=== PATIENT | male | born 1945 | race Caucasian/White ===

== ENCOUNTER 2021-11-17 09:56 | Outpatient (REF) | payer OTHER, SELFPAY ==
--- NOTE | ~2021-11-17 | CT_ITS ---
EXAMINATION: CT ANGIOGRAPHY LEGS WITH RUNOFF CLINICAL INFORMATION: Peripheral vascular disease. COMPARISON: None TECHNIQUE: Following rapid IV administration of 100 mL of Omnipaque 350, CT angiogram of abdominal aorta and both lower extremities was performed. 3-D postprocessing was performed on a separate workstation and is available for interpretation. This CT examination was performed using dose optimization techniques as appropriate, variously including the following: *Automated exposure control *Adjustment of mA and/or kV according to patient size (this includes techniques or standardized protocols for targeted exams where dose is matched to indication/reason for exam; i.e. extremities or head) *Use of iterative reconstruction technique DLP: 501 mGy-cm FINDINGS: CTA ABDOMEN: There is mild atherosclerotic soft plaque seen in the proximal, mid and the distal segments. There is good opacification of proximal mid and distal segments with no aneurysm or dissection visualized. Origin of celiac, SMA arteries is normal. There is minimal calcified plaque at the origin of SMA. The DEANNE is small caliber with its origin patent but barely visible. There are 2 right renal arteries with a smaller superior and a larger inferior artery. There is mild narrowing of the larger inferior artery from soft and hard atherosclerotic plaque with post stenotic mild dilatation. The superior renal artery is patent. A solitary left renal artery is noted and is widely patent in spite of mixed plaque at the origin. There are occluded and thrombosed and small caliber chitina left common iliac artery. There is left aorto-femoral grafts. ABDOMEN NON-CTA: The lung bases are clear. Heart size is normal. Liver, Ducts and Gallbladder: The liver is diffusely attenuated with normal size, contour. No focal lesion seen. There is no intrahepatic ductal dilatation. The gallbladder appears unremarkable. Spleen: Unremarkable. A small accessory splenule is seen along the anterior tip of the spleen. Pancreas: Unremarkable. Adrenal Glands: Both adrenal glands are symmetrical and normal. Kidneys and Ureters: Both kidneys are normal size, position and normal cortical thickness for patient's age. No radiopaque calculi or hydronephrosis seen. The ureters are normal caliber. Lymph Nodes: There are no abnormal size retroperitoneal or mesenteric lymph nodes. GI Tract: There is scattered stool and diverticula seen throughout the colon without any distention. The small bowel loops are normal caliber. Appendix is not visualized. There is no inflammatory process, free air or free fluid. Abdominal Wall: There is a small umbilical hernia containing fat. Pelvis: The bladder is nondistended and appears unremarkable. The prostate gland is mildly enlarged. The periprostatic fat planes are preserved. There is no abnormal inguinal or pelvic lymphadenopathy. Osseous Structures: There is grade 1 anterolisthesis L5 over S1 with vacuum disc phenomena. There is loss of disc heights with spondylosis at L5-S1, L4-L5 and L3-L4 disc level. No fracture or lytic process seen. CTA RUNOFF LOWER EXTREMITY, LEG: Right Leg: There is a question of patent right common iliac artery with calcified plaque in the common iliac artery. There is normal bifurcation into a small caliber right external and a small caliber right internal iliac artery. There is soft plaque seen throughout the iliac and the right common femoral artery. There is normal bifurcation of common femoral artery into small caliber calcified right superficial femoral and patent deep right profunda artery which continues as a small branching vessel in the thigh. There is segmental flow visualized in the right superficial femoral artery with atherosclerosis. The right SFA extends below the knee and bifurcates into common trunk of peroneal and anterior tibial and posterior tibial arteries. There is three-vessel runoff beyond the bifurcation in the calf. There is two-vessel runoff widely patent in the foot beyond the ankle mortise. Left Leg: There is an left common iliac graft extending from the distal abdominal aorta to the common femoral artery which appears widely patent. Posterior to that is a chitina thrombosed calcified left common and external iliac artery. The left common iliac artery graft communicates to left profunda artery and its branches through the lower thigh and opacifies popliteal artery through geniculate collaterals. The chitina SFA has no flow with hard atherosclerotic plaque. The popliteal artery trifurcates into anterior tibial, peroneal and posterior tibial artery. The posterior tibial artery is diseased with plaque. Nevertheless, there are 2 vessels extending into the lower calf and ankle region. The peroneal artery is lost in the distal calf. There is two-vessel runoff in the left foot beyond the ankle mortise. CT/CT angio abd aorta runoff IMPRESSION: Patent aorta however, there is significant mixed plaque seen in the proximal mid and distal segments. 2 renal arteries on the right and a solitary left renal artery patent. The celiac, superior mesenteric arteries are patent with some disease at the origin of SMA. The DEANNE origin is not well visualized but there is a small caliber patent DEANNE. There is graft extending from distal aorta into the left common femoral artery which appears patent. The chitina common iliac artery is thrombosed and calcified. The patent graft to the profunda femoris artery and its branches extend through the thigh which reconstitutes popliteal artery via genicular collaterals. There is a two-vessel runoff in the left foot. The chitina right common iliac artery is patent but diseased distally. The common femoral artery is patent extending into the profunda femoral artery and collaterals extending through the thigh to form the popliteal artery. The SFA is diseased with some intermittent segmental flow through its course extending distally form the popliteal artery. The genicular collateral arteries also contributes to formation of right popliteal artery. There is a two-vessel runoff in the right foot. Grade 1 anterolisthesis of L5 over S1 with degenerative disc changes L3-L4, L4-L5, L5-S1 disc levels. No acute process seen in the abdomen or pelvis except for mild prostate enlargement.
[2021-11-17] MEDS: iohexoL 350 MG/ML 100 ML INFUS..BTL IV (11:14)
== END 2021-11-17 09:57 | disposition home or self-care (01) ==
LOC: HO.CT 09:56
PROVIDERS: Visit Provider Internal Medicine
DX: I73.9 Peripheral vascular disease, unspecified (principal)
CPT/HCPCS: 75635; Q9967